=== PATIENT | male | born 1960 | race Caucasian/White ===

== ENCOUNTER 2017-08-27 03:37 | Observation (INO) | payer BC, MEDICARE ==
[~2017-08-27] VITALS: Ht 177.8 cm; Wt 112.1 kg
[~2017-08-27 03:37] MED LIST: ASPIRIN EC81 M1 PO; GLUCOPHAGE500 MG PO; MEDROL DOSE PACK4 MG PO; PERCOCET 10/3251 TA1 PO; ZESTORETIC 10/11 TAB PO; ZOCOR40 MG PO
[2017-08-27 04:07] LABS: BASOPHILS 0.3 % (0-2); EOSINOPHILS 0.8 % (0-7); HEMATOCRIT 43.8 % (42.0-54.0); HEMOGLOBIN 14.7 g/dL (13.5-17.5); IMMATURE GRANULOCYTES 0.1 % (0-5); LYMPHOCYTES 9.7 % (15-50); MCH 28.9 pg (26.0-34.0); MCHC 33.6 g/dL (31.0-37.0); MCV 86.2 fL (80.0-100.0); MEAN PLATELET VOLUME 10.2 fL (7.4-10.4); MONOCYTES 11.8 % (2-11); NEUTROPHILS 77.3 % (40-80); PLATELET COUNT 124 10x3/uL (130-400); RBC 5.08 10x6/uL (4.20-6.10); RDW 14.5 % (11.5-14.5); WBC 7.1 10x3/uL (4.8-10.8)
[2017-08-27 04:21] LABS: ALBUMIN 3.9 g/dL (3.4-5.0); ALKALINE PHOSPHATASE 59 U/L (46-116); ALT (SGPT) 58 U/L (10-68); BILIRUBIN - TOTAL 0.69 mg/dL (0.2-1.3); CALCIUM 8.9 mg/dL (8.5-10.1); CARBON DIOXIDE 27.8 mmol/L (21.0-32.0); CHLORIDE - SERUM 100 mmol/L (98-107); CREATININE - SERUM 1.2 mg/dL (0.6-1.3); POTASSIUM - SERUM 3.6 mmol/L (3.5-5.1); PROTEIN - SERUM 7.6 g/dL (6.4-8.2); SODIUM 134 mmol/L (136-145); UREA NITROGEN 13 mg/dL (7-18); eGFR NON AFRICAN AMERICAN 66 mL/min (90-120)
[2017-08-27 04:27] LABS: CALC OSMOLALITY 269 mosm/kg (275-300); GLUCOSE 143 mg/dL (74-106); TROPONIN-I < 0.017 ng/mL (0.000-0.060)
[2017-08-27 04:57] LABS: CKMB 0.8 U/L (0.0-3.6); CREATINE KINASE 183 UL (21-232); PRO BNP 162 pg/mL (0-125)
[2017-08-27 07:56] LABS: CKMB 0.9 U/L (0.0-3.6); CREATINE KINASE 204 UL (21-232); TROPONIN-I < 0.017 ng/mL (0.000-0.060)
[2017-08-27] MEDS ORDERED: HYDROCODONE-APA1 TAB PO (08:12)
[2017-08-27] MEDS ORDERED: ULORIC40 MG PO (08:12)
[2017-08-27] MEDS ORDERED: OMEPRAZOLE40 MG PO (08:13)
[2017-08-27] MEDS ORDERED: COREG25 MG PO (08:14)
[2017-08-27] MEDS ORDERED: PRINIVIL20 MG PO (08:14)
[2017-08-27] MEDS ORDERED: COLCRYS0.6 MG PO (08:15)
[2017-08-27] MEDS ORDERED: ALDACTAZIDE 25/1 TAB PO (08:18)
--- NOTE | 2017-08-27 08:22 | NUR ---
RECIVED FROM ER PER WC TO ROOM 2130. ADMIT ASSESSMENT PER RN
--- NOTE | 2017-08-27 08:49 | NUR ---
TRANSFER FROM ER BY W/C. FRANCOISINTED TO ROOM. CALL LIGHT IN REACH. WILL CONT. PLAN OF CARE.
[2017-08-27 08:50] VITALS: BP 165/85; Ht 177.8 cm; Wt 112.1 kg
[2017-08-27 12:12] VITALS: BP 149/89
--- NOTE | 2017-08-27 15:00 | NUR ---
DR LESLIE , NURSE NOTIFYED OF BARRON AND HTN. NO ORDERS RECIVED.
[2017-08-27 16:11] VITALS: BP 158/974
[2017-08-27 17:00] LABS: CKMB 1.1 U/L (0.0-3.6)
[2017-08-27 17:18] LABS: CREATINE KINASE 273 UL (21-232); TROPONIN-I < 0.017 ng/mL (0.000-0.060)
--- NOTE | 2017-08-27 17:38 | NUR ---
WITHOUT CHANGES OR DISTRESS NOTED AT THIS TIME. DENIES NEEDS.
--- NOTE | 2017-08-27 19:41 | NUR ---
PT IN BED RESTING QUIETLY. BREATHING EVEN AND UNLABORED. BED IN LOW POSITION, CALL LIGHT WITHIN REACH. WILL CTM.
[2017-08-27 20:23] VITALS: BP 118/85
[2017-08-27 22:58] LABS: CKMB 1.1 U/L (0.0-3.6); CREATINE KINASE 309 UL (21-232)
[2017-08-27 22:59] LABS: TROPONIN-I < 0.017 ng/mL (0.000-0.060)
[2017-08-28] VITALS: BP 177/78
[2017-08-28 04:00] VITALS: BP 152/95
[2017-08-28 05:03] LABS: BASOPHILS 0.2 % (0-2); EOSINOPHILS 0.4 % (0-7); HEMATOCRIT 44.2 % (42.0-54.0); HEMOGLOBIN 14.6 g/dL (13.5-17.5); LYMPHOCYTES 25.4 % (15-50); MCH 28.9 pg (26.0-34.0); MCV 87.4 fL (80.0-100.0); MEAN PLATELET VOLUME 10.2 fL (7.4-10.4); MONOCYTES 15.4 % (2-11); NEUTROPHILS 58.6 % (40-80); PLATELET COUNT 111 10x3/uL (130-400); RBC 5.06 10x6/uL (4.20-6.10); RDW 15.1 % (11.5-14.5); WBC 5.6 10x3/uL (4.8-10.8)
[2017-08-28 05:27] LABS: ALBUMIN 3.7 g/dL (3.4-5.0); ALKALINE PHOSPHATASE 52 U/L (46-116); ALT (SGPT) 57 U/L (10-68); CALC OSMOLALITY 266 mosm/kg (275-300); CALCIUM 9.1 mg/dL (8.5-10.1); CARBON DIOXIDE 27.9 mmol/L (21.0-32.0); CHLORIDE - SERUM 98 mmol/L (98-107); GLUCOSE 108 mg/dL (74-106); POTASSIUM - SERUM 3.2 mmol/L (3.5-5.1); PROTEIN - SERUM 7.5 g/dL (6.4-8.2); SODIUM 133 mmol/L (136-145); UREA NITROGEN 13 mg/dL (7-18); eGFR NON AFRICAN AMERICAN 82 mL/min (90-120)
--- NOTE | 2017-08-28 07:00 | NUR ---
REPORT RECEIVED ON PATIENT. MORNING ROUNDS MADE. PATIENT LAYING IN BED, WATCHING TV. DENIES ANY NEEDS AT THIS TIME. WILL CONTINUE TO MONITOR. CPOC.
[2017-08-28 08:00] VITALS: BP 127/68
--- NOTE | 2017-08-28 10:15 | NUR ---
SPOKE WITH SOCORRO FROM DR. LESLIE'S OFFICE. ADVISED THAT PATIENT WAS TOLD BY DR. LESLIE THIS MORNING HE WAS BEING DISCHARGED, BUT THERE IS NO DISCHARGE ORDERS IN THE SYSTEM. ALSO, PATIENT IS C/O A "PRETTY BAD" COUGH AND WOULD LIKE SOME COUGH MEDICINE. SHE VOICED UNDERSTANDING AND STATES SHE WILL LET DR. LESLIE KNOW.
--- NOTE | 2017-08-28 12:19 | CN ---
PATIENT NAME:JAMES FISHER MEDICAL RECORD: [id number] : 60 LOCATION:D. D.2130 ADMIT DATE: 08/27/17 ACCOUNT: [id number] CONSULTING PHYSICIAN: YAYA JORDAN MD REFERRING PHYSICIAN: CARLOS MANUEL LESLIE DO DATE OF CONSULTATION: 08/28/2017 HISTORY OF PRESENT ILLNESS: A 57-year-old gentleman with a history of hyperglycemia, admitted with breathlessness. He has taken quite a bit of decongestant due to upper respiratory tract infection. We are asked to see him concerning his cardiovascular status. Had nuclear stress testing approximately 2 years ago that was normal. PAST MEDICAL HISTORY: Includes; 1. History of hypertension. 2. Hyperlipidemia. 3. Hyperglycemia. 4. Gouty arthritis. MEDICATIONS: Uloric 40 every day, metformin 500 b.i.d., omeprazole 40 every day, aspirin 81 every day, Aldactone 25 every day, carvedilol 25 b.i.d., lisinopril 20 b.i.d., Zocor 40 every day. SOCIAL HISTORY: Disabled. He is a nonsmoker. No set exercise program. He is able to take care of his ADLs. REVIEW OF SYSTEMS: The patient reports easy bruising but reports no swollen glands. The patient reports no fever, no night sweats, no significant weight gain, no significant weight loss. No significant exercise tolerance. The patient reports no dry eyes, no irritation, no vision change. Patient reports no difficulty hearing and no ear pain. Patient reports no frequent nose bleeds or nose and sinus problems. Patient reports on arm pain on exertion. No shortness of breath while lying down. No history of heart murmur. Patient reports no cough, no wheezing or coughing up blood. Patient reports no abdominal pain, no vomiting. Normal appetite. No diarrhea and not vomiting blood. No nausea and no constipation. Patient reports no incontinence. No difficulty urinating. No hematuria. No increased frequency. Patient reports no muscle aches. No weakness, no arthralgias, no back pain. No swelling of the extremities. Patient reports no abnormal mole, no jaundice, no rashes. Reports no loss of consciousness. No weakness and no numbness. No seizures, dizziness, or headaches. The patient reports no depression, no sleep disturbance, feeling safe in a relationship and no alcohol abuse. Patient reports on fatigue. Reports no runny nose or sinus pressure. No itching, no hives, and no frequent sneezing. PHYSICAL EXAMINATION: GENERAL: Pleasant gentleman, in no acute distress. VITAL SIGNS: Blood pressure 127/68, pulse 88 and regular. HEENT: Normocephalic, atraumatic. NECK: No bruits are noted. HEART: Regular. No gallops. LUNGS: Good air excursion. ABDOMEN: Soft, nontender. EXTREMITIES: Pulses 2+ with no edema. NEUROLOGIC: Grossly intact. CONSULT REPORT [id number] JAMES FISHER DIAGNOSTIC DATA: ECG is normal. IMPRESSION: Given his symptomatology, would probably benefit from noninvasive testing as an outpatient. No contraindication to discharge from my standpoint. TRANSINT:[id number] Voice Confirmation ID: [id number] DOCUMENT ID: [id number] YAYA JORDAN MD at 1219 CC: [id number] DICTATION DATE: 08/28/17901 NEEDLEMAKER: 08/28/17 1130 ADM IN [place] [id number] [place] [address]
[2017-08-28 13:16] VITALS: BP 131/82
--- NOTE | 2017-08-28 13:34 | NUR ---
RESTS IN BED. FRANCIS NEEDS AT THIS TIME. CALL LIGHT IN REACH. WILL MONITOR.
--- NOTE | 2017-08-28 14:48 | NUR ---
PATIENT RESTING AT THIS TIME, NAD NOTED. NEEDS MET AT THIS TIME. CPOC
--- NOTE | 2017-08-28 15:15 | NUR ---
PATIENT SITTING ON SIDE OF BED, FAMILY AT BEDSIDE. WENT OVER ALL DISCHARGE PAPERWORK WITH PATIENT/SPOUSE AND ALL QUESTIONS ANSWERED, PAPERWORK SIGNED. IV REMOVED, CATHETER TIP INTACT, AND BANDAGE PLACED. PATIENT HAD ALREADY REMOVED TELEMETRY. PATIENT WAS THEN ESCORTED TO FRONT ENTRANCE VIA WHEELCHAIR BY HOSPITAL STAFF.
== END 2017-08-28 15:24 | disposition home or self-care (01) ==
LOC: D.ER 03:37 → D.M2 07:02 → OBSVTIME 07:02 → D.M2 08-28 15:24
PROVIDERS: Family Medicine; ADMIT Family Medicine
DX: R07.9 Chest pain, unspecified (principal); R06.02 Shortness of breath; B34.9 Viral infection, unspecified; I10 Essential (primary) hypertension; E78.5 Hyperlipidemia, unspecified; E11.9 Type 2 diabetes mellitus without complications; I25.10 Atherosclerotic heart disease of native coronary artery without angina pectoris

== ENCOUNTER → 2018-11-18 09:48 | Outpatient (CLI) | payer BC, MEDICARE ==
[2017-08-27 08:50] VITALS: BMI 35.9
[~2018-11-18 09:48] MED LIST changes: +ALDACTAZIDE 25/1 TAB PO; +COLCRYS0.6 MG PO; +COREG25 MG PO; +HYDROCODONE-APA1 TAB PO; +OMEPRAZOLE40 MG PO; +PRINIVIL20 MG PO; +ULORIC40 MG PO
== END | disposition home or self-care (01) ==
LOC: D.CT 08:00
DX: R10.9 Unspecified abdominal pain (principal)